=== PATIENT | female | born 1995 | race Caucasian/White ===

== ENCOUNTER → 2016-11-30 | Outpatient (CLI) | payer OTHER ==
[2016-11-30 12:18] LABS: Amorphous Sediment,Urine Occasional /hpf; Appearance,Urine Cloudy (Clear); Bilirubin,Urine Negative (Negative); CH 30.4; CHCM 33.9; Glucose,Urine (UA) Negative (Negative); HDW 2.71; HGB 13.4 gm/dL (11.4-16.0); Ketones,Urine Negative (Negative); Leukocyte Esterase,Urine Large (Negative); MCH 30.3 pg (25.0-35.0); MCHC 33.5 g/dL (31.0-37.0); MCV 90.3 fL (80.0-100.0); Mean Platelet Volume 7.7; Mucus,Urine Rare /hpf; Nitrite,Urine Negative (Negative); PH, Urine 7.5 (5.0-8.0); Particle Count 15534; Protein,Urine Trace (Negative); RBC 4.43 m/uL (3.80-5.40); Specific Gravity,Urine 1.012 (1.001-1.035); Squamous Epithelial Cell,Urine 21 /hpf (0-4); UA Billing (MACRO vs. MICRO) MICRO; Urobilinogen,Urine <2.0 mg/dL (<2.0); WBC 8.2 k/uL (4.0-11.0); WBC,Urine 19 /hpf (0-5)
[2016-11-30 12:33] LABS: Glucose 77 mg/dL (74-99); Non-African American GFR(MDRD) >60 (>60 ml/min/1.73 sqM)
[2016-11-30 13:03] LABS: Hepatitis B Surface Ag Index 0.06
[2016-11-30 15:51] LABS: Treponemal Ab Non-Reactive (Non-Reactive)
== END | disposition home or self-care (01) ==
LOC: LABWHC1 11:20
PROVIDERS: ATTEND Obstetrics & Gynecology
DX: Z34.02 Encounter for supervision of normal first pregnancy, second trimester (principal); R53.83 Other fatigue; Z3A.00 Weeks of gestation of pregnancy not specified
CPT/HCPCS: 36415; 81001; 82565; 82947; 85027; 86762; 86780; 86850; 86900; 86901; 87086; 87340; 87390; 87491; 87591

== ENCOUNTER → 2016-12-28 | Outpatient (CLI) | payer OTHER ==
[2016-12-28 17:40] LABS: CH 31.4; CHCM 33.3; HCT 35.8 % (34.0-46.0); HDW 2.71; HGB 11.8 gm/dL (11.4-16.0); MCH 31.2 pg (25.0-35.0); MCHC 32.9 g/dL (31.0-37.0); MCV 94.7 fL (80.0-100.0); RBC 3.78 m/uL (3.80-5.40); WBC 10.9 k/uL (4.0-11.0)
== END | disposition home or self-care (01) ==
LOC: LABWHC1 15:52
PROVIDERS: ATTEND Obstetrics & Gynecology
DX: Z34.02 Encounter for supervision of normal first pregnancy, second trimester (principal)
CPT/HCPCS: 36415; 82950; 85027; 86850

== ENCOUNTER 2017-04-01 17:53 | Outpatient (CLI) | payer OTHER ==
[2017-04-01 19:20] VITALS: BP 135/74; PULSE 75; RESP 18; TEMP 98.1
--- NOTE | 2017-04-01 22:51 | P.MSEPDOC ---
Presenting Problems - Arrival Data Date of Arrival on Unit: 04/01/17 Time of Arrival on Unit: 17:53 Mode of Transport: Wheelchair - Complaint OB-Reason for Admission/Chief Complaint: Possible Onset of Labor Comment: contractions q 5 min started at 3pm pt crying with contractions. Medical History - Information : 1 Para: 0 Term: 0 : 0 Abortions: Spontaneous or Elective: 0 Number of Living Children: 0 - Gestational Age Gestational Age by PIETRO (wks/days): 38 Weeks and 5 Days Review of Systems - Review of Systems Constitutional: No problems Breast: No problems ENT: No problems Cardiovascular: No problems Respiratory: No problems Gastrointestinal: No problems Genitourinary: No problems Musculoskeletal: No problems Neurological: No problems Skin: No problems Vital Signs - Temperature Temperature: 98.1 F Temperature Source: Oral - Pulse Right Pulse Rate: 75 Pulse Assessment Method: Automatic Cuff - Respirations Respiratory Rate: 18 Oxygen Delivery Method: Room Air - Blood Pressure Right Arm Blood Pressure: 135/74 Blood Pressure Mean: 94 Blood Pressure Source: Automatic Cuff Medical Screen Scoring (Pre) - Cervical Exam Dilation: 1-3 cm = 1 - Uterine Contractions Frequency: > or = 36 weeks =2 Duration: > 40 seconds = 2 - Maternal Vital Signs Maternal Blood Pressure: N/A Signs of Preeclampsia: N/A Maternal Respirations: N/A - Pain Assessment Pain Location and Character: Abdomen Pain Scale Used: Numeric (1 - 10) Pain Intensity: 7 Pain Description: Cramping - Assessment Baseline FHR: 130 Heart Rate - NICHD Category: Category I (Normal) = 0 NST: Reactive - Total Score Total Score (Pre): 5 - Level of Risk Level of Risk: Low (0-5) Physician Notification (Pre) - Physician Notified Physician Notified Date: 04/01/17 Physician Notified Time: 18:45 Physician/Practitioner Notifed:: Dr Rosa New Order Received: Yes (recheck cervix in 1 hour.) Medical Screen Scoring (Post) - Cervical Exam Dilation: 1-3 cm = 1 Effacement: More than 50% = 2 Membranes: Intact - Uterine Contractions Frequency: > or = 36 weeks =2 Duration: > 40 seconds = 2 - Maternal Vital Signs Maternal Temperature: N/A Maternal Blood Pressure: N/A Signs of Preeclampsia: N/A Maternal Respirations: N/A - Pain Assessment Pain Location and Character: Abdomen Pain Scale Used: Numeric (1 - 10) Pain Intensity: 6 Pain Management Goal: 5 Pain Description: *Acute, Cramping Pain Frequency: Intermittent Pain Behavior: Facial Grimacing Pain Aggravating Factors: Contractions FLACC Face: Occassnl Grimac/Frown = 1 FLACC Legs: Relaxed = 0 FLACC Activity: Lying Quietly = 0 FLACC Cry: No Cry = 0 FLACC Consolability: Reassured by Touch = 1 FLACC Pain Score: 2 - Maternal Trauma Maternal Trauma: N/A - Assessment Heart Rate: 125 Heart Rate - NICHD Category: Category I (Normal) = 0 NST: Reactive - Total Score Total Score (Post): 7 - Post Treatment Level of Risk Post Treatment Level of Risk: Medium (6-9) Physician Notification (Post) - Physician Notified Physician Notified Date: 04/01/17 Physician Notified Time: 19:30 Physician/Practitioner Notified:: Dr Rosa Spoke With: Dr Rosa New Order Received: Yes - Notification Comment Comment: pt may stay for an extra hour and be rechecked and if no change made to d/c pt home or pt can go home now and try comfort measures Disposition - Disposition OB Disposition: Discharge to home Discharge Date: 04/01/17 Discharge Time: 19:45 I agree with the RN Medical Screening Exam: Yes Risk & Benefit of care provided described in d/c instruction: Yes Diagnosis: FALSE LABOR AT OR AFTER 37 COMPLETED WEEKS OF GESTATION
== END 2017-04-01 19:45 | disposition home or self-care (01) ==
LOC: FBPOP 17:53
PROVIDERS: ATTEND Obstetrics & Gynecology
DX: O47.1 False labor at or after 37 completed weeks of gestation (principal); Z3A.38 38 weeks gestation of pregnancy
CPT/HCPCS: 59025; G0463; 99213

== ENCOUNTER 2017-04-02 01:36 | Inpatient (IN) | payer OTHER ==
[2017-04-02] MEDS ORDERED: METHYLERGONOVINE 0.2 MG/ML 1 ML AMP IM PRN (01:52)
[2017-04-02] MEDS ORDERED: OXYTOCIN 10 UNIT/ML 1 ML VIAL IM PRN (01:52)
[2017-04-02] MEDS ORDERED: TERBUTALINE 1 MG/ML VIAL SQ PRN (01:52)
[2017-04-02] MEDS ORDERED: CARBOPROST TROMETHAMINE 250 MCG/ML 1 ML AMP IM PRN (01:52)
[2017-04-02] MEDS ORDERED: LIDOCAINE 1% (PF) 10 MG/ML (30 ML SDV) SQ PRN (01:52)
[2017-04-02] MEDS ORDERED: LACTATED RINGERS 1,000 ML IV SCH (02:00)
[2017-04-02 02:10] LABS: Basophils % (A) 0 %; CH 29.6; CHCM 32.4; Eosinophils # (A) 0.2 k/uL (0-0.7); Eosinophils % (A) 1 %; HCT 35.3 % (34.0-46.0); HDW 3.16; Hypochromasia Slight; Luc # (Auto) 0.06; Luc % (Auto) 0; Lymphocytes # (A) 0.7 k/uL (1.0-4.8); Lymphocytes % (A) 4 %; MCH 28.6 pg (25.0-35.0); MCHC 31.2 g/dL (31.0-37.0); MCV 91.6 fL (80.0-100.0); Mean Platelet Volume 7.8; Monocytes # (A) 0.4 k/uL (0-1.0); Monocytes % (A) 3 %; Neutrophils # (A) 13.9 k/uL (1.3-7.7); Neutrophils % (A) 92 %; RBC 3.85 m/uL (3.80-5.40); RDW 12.6 % (11.5-15.5); WBC 15.1 k/uL (4.0-11.0); WBC (Perox) 14.82
--- NOTE | 2017-04-02 02:18 | P.HPOB ---
History of Present Illness H&P Date: 04/02/17 Chief Complaint: Contractions This is a 21-year-old female 1 para 0 with an estimated date of confinement of 04/10/2017, estimated gestational age of 38-6/7 weeks, who presents to labor and delivery with complaints of contractions that become stronger through the night. She was seen in triage earlier in the evening with contractions and found to be 1-1/2 cm. She was rechecked after 2 hours with no cervical change and was sent home. She returned after taking a warm bath and feeling much stronger and regular contractions. She states when she got up out of the bath she felt a gush of water but figured it was from being in the bathtub. Upon arrival at triage she is now noted to be 6-6-1/2 cm. When I checked her myself, I did not palpate a bag of water and hair is palpated. Her care has been with Dr. Olguin and has been uncomplicated per patient. She was treated for chlamydia earlier in the . Test of cure was negative. She did receive RhoGAM for Rh-. labs: Obstetrical ultrasound-normal anatomy GC-negative Chlamydia-initially positive and test of cure negative Random glucose-77 Hepatitis B surface antigen-negative The globe 1-13.4 HIV-nonreactive Syphilis antibody-negative nonreactive Rubella-low positive Blood type-O- Antibody screen-negative One hour Glucola-85 Group B streptococcus-negative Obstetrical history first Review of Systems Constitutional: Denies chills, Denies fever Eyes: denies blurred vision, denies pain Ears, nose, mouth and throat: Denies headache, Denies sore throat Cardiovascular: Denies chest pain, Denies shortness of breath Respiratory: Denies cough Gastrointestinal: Reports abdominal pain (Contractions) Genitourinary: Reports pelvic pain, Reports Musculoskeletal: Reports low back pain, Denies myalgias Integumentary: Denies pruritus, Denies rash Neurological: Denies numbness, Denies weakness Psychiatric: Denies anxiety, Denies depression Past Medical History Past Medical History: No Reported History History of Any Multi-Drug Resistant Organisms: None Reported Past Surgical History: No Surgical Hx Reported Past Psychological History: No Psychological Hx Reported Smoking Status: Never smoker Past Alcohol Use History: None Reported Past Drug Use History: None Reported - Past Family History Mother Family Medical History: Diabetes Mellitus Medications and Allergies Home Medications Medication Instructions Recorded Confirmed Type Pnv,Calcium 72/Iron/Folic Acid 1 tab PO DAILY 04/02/17 04/02/17 History [ Plus Tablet] Allergies Allergy/AdvReac Type Severity Reaction Status Date / Time No Known Allergies Allergy Verified 04/02/17 01:48 Exam Osteopathic Statement: *. No significant issues noted on an osteopathic structural exam other than those noted in the History and Physical/Consult. - Vital Signs Vital signs: Intake and Output 04/01/17 04/01/17 04/02/17 14:59 22:59 06:59 Other: Weight 70.76 kg Patient Weight 04/02/17 06:59 Weight 70.76 kg HEENT: Within normal limits Heart: Regular rate and rhythm Lungs: Clear to auscultation bilaterally Abdomen: Cervix: 6-1/2 cm/100%/-2 station. No palpable bag of water is noted. heart tones: Reactive Contractions: Every 1-2 minutes Extremities: Negative Homans Assessment and Plan (1) 38 weeks gestation of Current Visit: Yes Status: Acute Code(s): Z3A.38 - 38 WEEKS GESTATION OF SNOMED Code(s): 32991048 Plan: Admission for active labor. Epidural anesthesia. Expectant management.
--- NOTE | 2017-04-02 03:08 | P.PROBDLV ---
Vaginal Delivery Note - . Vaginal Delivery Note: The patient progressed fairly rapidly to complete dilation. She was not able to get an epidural due to rapid labor. Once reaching complete dilation, she began involuntarily pushing. 's head rather rapidly came to a crown. Perineum was anesthetized with 1% lidocaine and a midline episiotomy was cut. With one further push, the 's head delivered across the perineum in a left occiput anterior position. As soon as the head delivered a big gush of blood occurred. Nose and mouth were bulb suctioned at the perineum. Nuchal cord times one was doubly cut and clamped and then reduced around the infant's head. With one further push, the remainder the delivered and was placed on mother's abdomen. was then immediately taken to warmer for evaluation by nursing staff. A viable female infant was noted with scores of 6 at 1 minute and 8 at 5 minutes and weight of 6 lbs. 6 oz. Her placenta delivered shortly thereafter, intact, with a three-vessel cord. The placenta did have a very marginal cord insertion. No obvious area of abruption was noted. Uterus did contract fairly well after uterine massage and oxytocin. Inspection of the perineum revealed a midline episiotomy with no further extension. This area was anesthetized with 1% lidocaine and then sutured with 3-0 and 2-0 Vicryl suture in the usual multilayer fashion. Estimated blood loss is approximately 150 mL. Mother is in stable condition and infant is taken to nursery for evaluation.
[2017-04-02] MEDS ORDERED: BENZOCAINE/MENTHOL SPRAY 1 GM/SPRAY AEROSOL TOPICAL PRN (03:23)
[2017-04-02] MEDS ORDERED: OXYTOCIN 20 UNITS/1000 ML NS 1,000 ML IV SCH (03:23)
[2017-04-02] MEDS ORDERED: diphenhydrAMINE 50 MG CAP PO PRN (03:23)
[2017-04-02] MEDS ORDERED: HYDROCORTISONE 2.5% RECTAL CREAM 30 GM TUBE RECTAL PRN (03:23)
[2017-04-02] MEDS ORDERED: MEASLES-MUMPS-RUBELLA VACC/PF 12,500 UNIT/0.5 ML VIAL SQ ONE (03:23)
[2017-04-02] MEDS ORDERED: ZOLPIDEM 5 MG TAB PO PRN (03:23)
[2017-04-02] MEDS ORDERED: WITCH HAZEL 1 EACH MED..PAD TOPICAL PRN (03:23)
[2017-04-02] MEDS ORDERED: LANOLIN CREAM 5 GM TUBE TOPICAL PRN (03:23)
[2017-04-02] MEDS ORDERED: diphenhydrAMINE 25 MG CAP PO PRN (03:23)
[2017-04-02] MEDS ORDERED: SIMETHICONE 80 MG CHEWABLE PO PRN (03:23)
[2017-04-02] MEDS ORDERED: diphenhydrAMINE 50 MG/ML 1 ML VIAL IVP PRN ×2 (03:23)
[2017-04-02] MEDS: IBUPROFEN 600 MG TAB PO PRN ×3 (04:27→15:01)
[2017-04-02 04:47] VITALS: BMI 28.5
[2017-04-02] MEDS: SENNOSIDES-DOCUSATE SODIUM 1 EACH TAB PO SCH ×2 (09:00→19:50)
[2017-04-02] MEDS: ACETAMINOPHEN TAB 325 MG TAB PO PRN ×2 (13:04→19:53)
[2017-04-03] MEDS: IBUPROFEN 600 MG TAB PO PRN ×2 (05:56→16:04)
[2017-04-03 07:39] LABS: Basophils % (A) 0 %; CH 28.6; CHCM 31.3; Eosinophils % (A) 0 %; HCT 33.6 % (34.0-46.0); HDW 2.96; HGB 10.7 gm/dL (11.4-16.0); Hypochromasia Moderate; Luc # (Auto) 0.11; Luc % (Auto) 1; Lymphocytes # (A) 1.5 k/uL (1.0-4.8); Lymphocytes % (A) 14 %; MCH 29.2 pg (25.0-35.0); MCHC 31.8 g/dL (31.0-37.0); Mean Platelet Volume 8.8; Monocytes # (A) 0.5 k/uL (0-1.0); Monocytes % (A) 4 %; Neutrophils # (A) 9.2 k/uL (1.3-7.7); Neutrophils % (A) 81 %; RBC 3.66 m/uL (3.80-5.40); RDW 14.1 % (11.5-15.5); WBC 11.4 k/uL (4.0-11.0); WBC (Perox) 11.72
--- NOTE | 2017-04-03 08:50 | P.PNOBGVD ---
Subjective - Subjective Principal diagnosis: Post day 1 Interval history: Doing very well. Voices no complaints. Vital signs are stable and afebrile. Patient reports: Reports appetite normal, Reports voiding normally, Reports pain well controlled, Reports ambulating normally : in NICU Objective - Latest Vital Signs Latest vital signs: Vital Signs Temp Pulse Resp BP Pulse Ox 04/03/17 07:43 98 F 98 16 121/82 04/03/17 00:00 98.0 F 99 16 109/55 99 04/02/17 16:00 98.2 F 73 16 114/56 04/02/17 09:30 98.3 F 68 16 112/63 Intake and Output 04/02/17 04/03/17 04/03/17 22:59 06:59 14:59 Other: # Voids 1 1 2 - Exam Lungs: bilateral: normal Chest: Normal S1, Normal S2 Extremities: Present: normal Abdomen: Present: normal appearance, soft Uterus: Present: normal, firm - Labs Labs: Abnormal Lab Results - Last 24 Hours (Table) 04/03/17 Range/Units 07:27 WBC 11.4 H (4.0-11.0) k/uL RBC 3.66 L (3.80-5.40) m/uL Hgb 10.7 L (11.4-16.0) gm/dL Hct 33.6 L (34.0-46.0) % Neutrophils # 9.2 H (1.3-7.7) k/uL
[2017-04-03] MEDS: SENNOSIDES-DOCUSATE SODIUM 1 EACH TAB PO SCH ×2 (16:05→19:47)
[2017-04-04] MEDS: SENNOSIDES-DOCUSATE SODIUM 1 EACH TAB PO SCH (08:01)
[2017-04-04] MEDS: IBUPROFEN 600 MG TAB PO PRN (08:01)
[2017-04-04 08:08] VITALS: BP 124/78; PULSE 80; RESP 16; TEMP 98.3
--- NOTE | 2017-04-04 08:27 | P.DS ---
Providers Date of admission: 04/02/17 01:50 Expected date of discharge: 04/04/17 Attending physician: Phong Olguin Primary care physician: Stated None Hospital Course: Queta is doing very well day 2. She is ambulating, voiding, and she is tolerating her diet. She voices no complaints. Baby is still in special care nursery but she needs to be discharged home today. Prescription for Motrin has been provided. All other questions are answered for her at this time. Vital signs are stable and she is afebrile. Heart regular, lungs clear, extremities without pain. Abdomen is soft uterus is firm lochia is reported to be light. Assessment day 2. Plan discharged home follow up with me in 6 weeks. Patient Condition at Discharge: Good Plan - Discharge Summary New Discharge Prescriptions: New Ibuprofen [Motrin] 600 mg PO Q6HR PRN #30 tab PRN Reason: Pain No Action Pnv,Calcium 72/Iron/Folic Acid [ Plus Tablet] 1 tab PO DAILY Discharge Medication List Pnv,Calcium 72/Iron/Folic Acid [ Plus Tablet] 1 tab PO DAILY 04/02/17 [ History] Ibuprofen [Motrin] 600 mg PO Q6HR PRN #30 tab 04/04/17 [Rx] Follow up Appointment(s)/Referral(s): Phong Olguin DO [Doctor of Osteopathic Medicine] - 6 Weeks Activity/Diet/Wound Care/Special Instructions: No heavy lifting, limit stairs and driving, and pelvic rest. If any high temperatures, heavy bleeding, or severe pain call my office Discharge Disposition: HOME SELF-CARE
== END 2017-04-04 14:27 | disposition home or self-care (01) | DRG 560 ==
LOC: FBPOP 01:36 → 4FBP 01:50
PROVIDERS: ADMIT Obstetrics & Gynecology; ATTEND Obstetrics & Gynecology
PROC: 10E0XZZ Delivery of Products of Conception, External Approach (ICD-10-PCS; principal; 2017-04-02)
PROC: 0W8NXZZ Division of Female Perineum, External Approach (ICD-10-PCS; 2017-04-02)
DX: O69.81X0 Labor and delivery complicated by cord around neck, without compression, not applicable or unspecified (principal); O43.193 Other malformation of placenta, third trimester; Z83.3 Family history of diabetes mellitus; Z37.0 Single live birth; Z3A.38 38 weeks gestation of pregnancy
CPT/HCPCS: 59025; 85025; 88307; 90471; 90707; 99213

== ENCOUNTER → 2018-09-10 | Outpatient (CLI) | payer OTHER ==
--- NOTE | 2018-09-10 16:42 | US ---
EXAMINATION TYPE: Transabdominal DATE OF EXAM: 09/10/2018 4:24 PM COMPARISON: NONE CLINICAL HISTORY: Z36 confirm dates. Absent heart tones EXAM PERFORMED: Transvaginal (TV) and Transabdominal (TA) EXAM MEASUREMENTS: GESTATIONAL AGE / DATING Physician Established: Not yet established Dates by LMP: (12 weeks/2 days) EDC: 03/23/19 Dates by First Scan: No previous this is first scan Dates by Current Scan for: (10 weeks/0 days) EDC: 04/08/19 MATERNAL ANATOMY Uterus: 10.1 x 6.4 x 8.2cm Right Ovary: 3.0 x 1.6 x 1.7cm Left Ovary: 2.9 x 2.0 x 2.1cm Post CDS / Adnexa: appears wnl Presence of free fluid: no Presence of corpus luteal cyst: Yes, hypoechoic focus left ovary = 2.2 x 1.4 x 1.5 cm. GESTATION / SURVEY CRL: 3.2cm (10 weeks/0 days) Yolk Sac (normal less than 6mm): 0.4cm Heart Rate: 175 bpm Rhythm: Normal IUP: Viable IUP Date of LMP: 06/16/18 Beta HcG (if available): Not available at this time IMPRESSION: SINGLE VIABLE IUP 10WKS/0DAYS WITH PIETRO 04/08/19.
== END | disposition home or self-care (01) ==
LOC: RADUSWWP 15:54
PROVIDERS: ATTEND Obstetrics & Gynecology
DX: O36.8310 Maternal care for abnormalities of the fetal heart rate or rhythm, first trimester, not applicable or unspecified (principal); Z3A.10 10 weeks gestation of pregnancy
CPT/HCPCS: 76801; 76817

== ENCOUNTER 2019-02-06 13:08 | Outpatient (CLI) | payer OTHER ==
[2019-02-06 13:46] VITALS: BP 118/65; PULSE 93; RESP 16; TEMP 96.6
[2019-02-06 14:21] LABS: Appearance,Urine Clear (Clear); Bilirubin,Urine 2+ (Negative); Blood,Urine Moderate (Negative); Color,Urine Dark Orange; Glucose,Urine (UA) Negative (Negative); Ketones,Urine Negative (Negative); Leukocyte Esterase,Urine Negative (Negative); Mucus,Urine Rare /hpf; Nitrite,Urine Positive (Negative); Protein,Urine Trace (Negative); RBC,Urine 134 /hpf (0-5); Specific Gravity,Urine 1.016 (1.001-1.035); Squamous Epithelial Cell,Urine 4 /hpf (0-4)
--- NOTE | 2019-02-20 10:37 | P.MSEPDOC ---
Presenting Problems - Arrival Data Date of Arrival on Unit: 02/06/19 Time of Arrival on Unit: 13:08 Mode of Transport: Ambulatory - Complaint OB-Reason for Admission/Chief Complaint: Signs/Symptoms UTI Comment: right flank pain and difficulty urinating Medical History - Information : 2 Para: 1 Term: 1 : 0 Abortions: Spontaneous or Elective: 0 Number of Living Children: 1 - Gestational Age Gestational Age by PIETRO (wks/days): 31 Weeks and 2 Days Review of Systems - Review of Systems Constitutional: No problems Breast: No problems ENT: No problems Cardiovascular: No problems Respiratory: No problems Gastrointestinal: No problems Genitourinary: Dysuria, Increased frequency Musculoskeletal: No problems Neurological: No problems Skin: No problems Vital Signs - Temperature Temperature: 96.6 F Temperature Source: Temporal Artery Scan - Pulse Right Brachial Pulse Rate: 93 Pulse Assessment Method: Automatic Cuff - Respirations Respiratory Rate: 16 Oxygen Delivery Method: Room Air O2 Sat by Pulse Oximetry: 97 - Blood Pressure Right Arm Sitting Blood Pressure: 118/65 Blood Pressure Mean: 82 Blood Pressure Source: Automatic Cuff Medical Screen Scoring (Pre) - Cervical Exam Dilation: Exam Deferred - Uterine Contractions Frequency: N/A Duration: N/A Intensity: N/A - Maternal Vital Signs Maternal Temperature: N/A Maternal Blood Pressure: N/A Signs of Preeclampsia: N/A Maternal Respirations: N/A - Maternal Trauma Maternal Trauma: N/A - Assessment - Baby A Baseline FHR: 135 Heart Rate - NICHD Category: Category I (Normal) = 0 NST: Reactive Position: N/A Station: N/A - Total Score - Baby A Total Score - Baby A: 0 - Total Score - Baby B Total Score - Baby B: 0 - Total Score - Baby C Total Score - Baby C: 0 - Level of Risk - Baby A Level of Risk - Baby A: Low (0-5) - Level of Risk - Baby B Level of Risk - Baby B: Low (0-5) - Level of Risk - Baby C Level of Risk - Baby C: Low (0-5) Medical Screen Scoring (Post) - Assessment - Baby A Heart Rate: 135 Heart Rate - NICHD Category: Category I (Normal) = 0 NST: Reactive Position: N/A Station: N/A - Total Score Total Score - Baby A: 0 - Post Treatment Level of Risk Post Treatment Level of Risk - Baby A: Low (0-5) Physician Notification (Post) - Physician Notified Physician Notified Date: 02/06/19 Physician Notified Time: 14:47 Spoke With: Sharif Rose Order Received: Yes (discharge with instruction and script) - Notification Comment Comment: UA sent for culture, script for Keflex sent to outpt pharm. Pt instructed to pick it up and if symptoms do not improve over next day or two then call office for appt. Next sched appt 02/17 Disposition - Disposition OB Disposition: Discharge to home, Written follow up instructions reviewed Discharge Date: 02/06/19 Discharge Time: 15:00 I agree with the RN Medical Screening Exam: Yes Risk & Benefit of care provided described in d/c instruction: Yes Diagnosis: URINARY TRACT INFECTION FOL (INDUCED) TERM OF
== END 2019-02-06 15:00 | disposition home or self-care (01) ==
LOC: FBPOP 13:08
PROVIDERS: ATTEND Obstetrics & Gynecology
DX: O23.43 Unspecified infection of urinary tract in pregnancy, third trimester (principal); Z3A.31 31 weeks gestation of pregnancy
CPT/HCPCS: 59025; 81001; G0463; 99213

== ENCOUNTER 2019-03-06 21:08 | Outpatient (CLI) | payer OTHER ==
[2019-03-06 22:33] VITALS: BP 129/80; PULSE 92; RESP 16; TEMP 98.6
--- NOTE | 2019-03-13 08:37 | P.MSEPDOC ---
Presenting Problems - Arrival Data Date of Arrival on Unit: 03/06/19 Time of Arrival on Unit: 21:08 Mode of Transport: Ambulatory - Complaint OB-Reason for Admission/Chief Complaint: Vaginal Bleeding Comment: pt states reason for visit is cramping on rt side and some bleeding noted on. toilet paper when she wiped at work 2 hours ago. states couldnt get the bleeding to stop. but did not wear a pad here and underware are clean Medical History - Information : 2 Para: 1 Term: 1 : 0 Abortions: Spontaneous or Elective: 0 Number of Living Children: 1 - Gestational Age Gestational Age by PIETRO (wks/days): 35 Weeks and 1 Days - History Comment: last delivery vaginal 37 weeks no problems Review of Systems - Review of Systems Constitutional: No problems Breast: No problems ENT: No problems Cardiovascular: No problems Respiratory: No problems Gastrointestinal: No problems Genitourinary: No problems Musculoskeletal: No problems Neurological: No problems Skin: No problems Vital Signs - Temperature Temperature: 98.6 F Temperature Source: Oral - Pulse Right Pulse Rate: 92 Pulse Assessment Method: Automatic Cuff - Respirations Respiratory Rate: 16 Oxygen Delivery Method: Room Air O2 Sat by Pulse Oximetry: 98 - Blood Pressure Right Arm Blood Pressure: 129/80 Blood Pressure Mean: 96 Blood Pressure Source: Automatic Cuff Medical Screen Scoring (Pre) - Cervical Exam Dilation: 1-3 cm = 1 Membranes: Intact - Uterine Contractions Frequency: N/A Duration: N/A Intensity: N/A - Maternal Vital Signs Maternal Temperature: N/A Maternal Blood Pressure: N/A Signs of Preeclampsia: N/A Maternal Respirations: N/A - Maternal Trauma Maternal Trauma: N/A - Assessment - Baby A Baseline FHR: 130 Heart Rate - NICHD Category: Category I (Normal) = 0 NST: Reactive Position: N/A Station: N/A - Total Score - Baby A Total Score - Baby A: 1 - Total Score - Baby B Total Score - Baby B: 1 - Total Score - Baby C Total Score - Baby C: 1 - Level of Risk - Baby A Level of Risk - Baby A: Low (0-5) - Level of Risk - Baby B Level of Risk - Baby B: Low (0-5) - Level of Risk - Baby C Level of Risk - Baby C: Low (0-5) Physician Notification (Pre) - Physician Notified Physician Notified Date: 03/06/19 Physician Notified Time: 21:50 Physician/Practitioner Notifed:: Dr Rosa Spoke With: Dr Rosa New Order Received: Yes - Notification Comment Comment: Dr Rosa advised pt here for cramping rt side and bleeding noted when wiping. NST reactive, maternal vitals WNL. Speculum exam showed no bleeding only yellow creamy discharge. vag exam 1cm 50% High. no contractions noted on monitor. pt denied constipation and possibilty of hemorrhoids. also denies urinary symptoms. Order for discharge recieved and to advise pt she may have spotting after this vag exam. Pt to. return if worsens Disposition - Disposition OB Disposition: Discharge to home Discharge Date: 03/06/19 Discharge Time: 22:00 I agree with the RN Medical Screening Exam: Yes Risk & Benefit of care provided described in d/c instruction: Yes Diagnosis: SPOTTING COMPLICATING , THIRD TRIMESTER
== END 2019-03-06 22:00 | disposition home or self-care (01) ==
LOC: FBPOP 21:08
PROVIDERS: ATTEND Obstetrics & Gynecology
DX: O26.853 Spotting complicating pregnancy, third trimester (principal); Z3A.35 35 weeks gestation of pregnancy
CPT/HCPCS: 59025; G0463; 99213

== ENCOUNTER 2019-04-02 06:00 | Inpatient (IN) | payer OTHER ==
[2019-04-02] MEDS ORDERED: METHYLERGONOVINE 0.2 MG/ML 1 ML AMP IM PRN (06:17)
[2019-04-02] MEDS ORDERED: OXYTOCIN 10 UNIT/ML 1 ML VIAL IM PRN (06:17)
[2019-04-02] MEDS ORDERED: TERBUTALINE 1 MG/ML VIAL SQ PRN (06:17)
[2019-04-02] MEDS ORDERED: CARBOPROST TROMETHAMINE 250 MCG/ML 1 ML AMP IM PRN (06:17)
[2019-04-02] MEDS ORDERED: LIDOCAINE 0.5% (PF) 5 MG/ML (50 ML SDV) SQ PRN (06:17)
[2019-04-02 06:27] VITALS: BMI 29.9
[2019-04-02] MEDS ORDERED: LACTATED RINGERS 1,000 ML IV SCH ×2 (06:30)
[2019-04-02] MEDS ORDERED: OXYTOCIN 30 UNITS/500 ML NS 30 UNIT in SALINE 1 500ML.BAG IV SCH (06:30)
[2019-04-02 06:38] LABS: Basophils % (A) 0 %; Eosinophils # (A) 0.1 k/uL (0-0.7); Eosinophils % (A) 1 %; HCT 35.5 % (34.0-46.0); HGB 12.1 gm/dL (11.4-16.0); Lymphocytes # (A) 1.8 k/uL (1.0-4.8); Lymphocytes % (A) 19 %; MCH 29.7 pg (25.0-35.0); MCV 87.3 fL (80.0-100.0); Mean Platelet Volume 6.4; Monocytes # (A) 0.4 k/uL (0-1.0); Monocytes % (A) 4 %; Neutrophils # (A) 7.3 k/uL (1.3-7.7); Neutrophils % (A) 74 %; Platelet Count 283 k/uL (150-450); RBC 4.06 m/uL (3.80-5.40); RDW 13.3 % (11.5-15.5); WBC 9.8 k/uL (3.8-10.6)
[2019-04-02] MEDS ORDERED: BUTORPHANOL 1 MG/ML 1 ML VIAL IV PRN (07:49)
[2019-04-02] MEDS ORDERED: diphenhydrAMINE 50 MG CAP PO PRN (12:45)
[2019-04-02] MEDS ORDERED: ZOLPIDEM 5 MG TAB PO PRN (12:45)
[2019-04-02] MEDS ORDERED: BENZOCAINE/MENTHOL SPRAY 1 GM/SPRAY AEROSOL TOPICAL PRN (12:45)
[2019-04-02] MEDS ORDERED: LANOLIN CREAM 5 GM TUBE TOPICAL PRN (12:45)
[2019-04-02] MEDS ORDERED: HYDROCORTISONE 2.5% RECTAL CREAM 30 GM TUBE RECTAL PRN (12:45)
[2019-04-02] MEDS ORDERED: ACETAMINOPHEN TAB 325 MG TAB PO PRN (12:45)
[2019-04-02] MEDS ORDERED: OXYTOCIN 20 UNITS/1000 ML NS 1,000 ML IV SCH (12:45)
[2019-04-02] MEDS ORDERED: WITCH HAZEL 1 EACH MED..PAD TOPICAL PRN (12:45)
[2019-04-02] MEDS ORDERED: SIMETHICONE 80 MG CHEWABLE PO PRN (12:45)
[2019-04-02] MEDS ORDERED: diphenhydrAMINE 25 MG CAP PO PRN (12:45)
[2019-04-02] MEDS: IBUPROFEN 600 MG TAB PO PRN ×2 (13:15→20:02)
--- NOTE | 2019-04-02 13:27 | P.HPOB ---
History of Present Illness H&P Date: 04/02/19 Chief Complaint: Intrauterine at term: Induction of labor Queta is a 23-year-old at 39 weeks gestation arise for induction of labor. Her course has been unremarkable and she is feeling well at this time. Review of induction was thoroughly performed and all questions were answered her pertinent labs could O- blood type Rh generally was negative, rubella nonimmune, hepatitis B surface antigen and RPR were both negative as was removed strep. On physical exam vital signs are stable and afebrile. Heart regular, lungs clear, extremities without pain. Abdomen soft gravid uterus is noted. She is dilated to 2-3 cm artificial rupture membranes was performed and clear fluid is noted. A category 1 tracing is noted. Assessment intrauterine at term. Plan augmentation of labor with Pitocin and expect spontaneous vaginal delivery. Past Medical History Past Medical History: No Reported History History of Any Multi-Drug Resistant Organisms: None Reported Past Surgical History: No Surgical Hx Reported Past Anesthesia/Blood Transfusion Reactions: No Reported Reaction Past Psychological History: No Psychological Hx Reported Smoking Status: Former smoker Past Alcohol Use History: None Reported Past Drug Use History: None Reported - Past Family History Mother Family Medical History: Diabetes Mellitus, Hypertension Medications and Allergies Home Medications Medication Instructions Recorded Confirmed Type Pnv,Calcium 72/Iron/Folic Acid 1 tab PO DAILY 04/02/17 04/02/19 History [ Plus Tablet] Allergies Allergy/AdvReac Type Severity Reaction Status Date / Time No Known Allergies Allergy Verified 04/02/19 06:17 Exam Osteopathic Statement: *. No significant issues noted on an osteopathic structural exam other than those noted in the History and Physical/Consult. Vital Signs Temp Pulse Resp BP Pulse Ox 04/02/19 12:45 97.6 F 98 18 120/62 04/02/19 06:16 96.1 F L 111 H 16 121/80 97 Intake and Output 04/01/19 04/02/19 04/02/19 22:59 06:59 14:59 Other: Weight 64.41 kg - OBG Physical Exam Breast: both: normal (no masses) Abdomen: bowel sounds normal, no diffuse tenderness, no bruit present, no guarding noted, no hepatomegaly, no splenomegaly, no mass Vulva: both: normal Vagina: normal moisture, no discharge Cervix: no lesion, no discharge Uterus: normal size, normal contour Adnexa: both: normal Anus/Rectum: normal perianal skin, no rectal mass, no hemorrhoids, heme negative Results Result Diagrams: 04/02/19 06:25
--- NOTE | 2019-04-02 13:28 | P.PROBDLV ---
Vaginal Delivery Note - . Vaginal Delivery Note: Crystal progressed complete and pushing with spontaneous vaginal delivery of a viable male over a first repair the laceration. Following delivery of the head anterior posterior shoulders were easily delivered with the baby in left occiput anterior position. Once baby was fully delivered mouth nares were bulb suctioned and baby was placed on mother's abdomen where the umbilical cord was allowed to pulsate for 30 seconds prior to clamping and cutting. Once this was accomplished nursery personnel was present and assumed care. Placenta was then delivered intact and Pitocin was added to the IV. scores and weight are on the chart at this time but both mother and baby are stable following delivery. 3-0 Vicryl was used to repair the laceration.
[2019-04-02] MEDS ORDERED: INFLUENZA VACCINE (6 MOS+) 60 MCG/0.5 ML SYRINGE IM ONE (20:04)
[2019-04-02] MEDS ORDERED: DIPH,PERTUS(ACELL)TETVAC-LF 0.5 ML VIAL IM ONE (20:04)
[2019-04-02] MEDS ORDERED: Rhogam IMMUNE GLOBULIN 1,500 UNIT/1 ML IM ONE (20:38)
[2019-04-02] MEDS: SENNOSIDES-DOCUSATE SODIUM 1 EACH TAB PO SCH (21:58)
[2019-04-03] MEDS: IBUPROFEN 600 MG TAB PO PRN (02:59)
[2019-04-03 07:00] LABS: Basophils % (A) 0 %; Eosinophils # (A) 0.1 k/uL (0-0.7); Eosinophils % (A) 0 %; HCT 35.5 % (34.0-46.0); HGB 11.5 gm/dL (11.4-16.0); Hypochromasia Slight; Lymphocytes # (A) 2.2 k/uL (1.0-4.8); Lymphocytes % (A) 18 %; MCH 29.1 pg (25.0-35.0); MCHC 32.3 g/dL (31.0-37.0); MCV 90.1 fL (80.0-100.0); Mean Platelet Volume 6.8; Monocytes # (A) 0.6 k/uL (0-1.0); Monocytes % (A) 5 %; Neutrophils # (A) 9.2 k/uL (1.3-7.7); Neutrophils % (A) 75 %; Platelet Count 254 k/uL (150-450); RBC 3.94 m/uL (3.80-5.40); RDW 13.4 % (11.5-15.5); WBC 12.3 k/uL (3.8-10.6)
[2019-04-03 08:21] VITALS: BP 108/73; PULSE 80; RESP 16; TEMP 98.8
[2019-04-03] MEDS: SENNOSIDES-DOCUSATE SODIUM 1 EACH TAB PO SCH (08:21)
== END 2019-04-03 15:00 | disposition home or self-care (01) | DRG 807 ==
LOC: 4FBP 06:13
PROVIDERS: ADMIT Obstetrics & Gynecology; ATTEND Obstetrics & Gynecology
PROC: 10E0XZZ Delivery of Products of Conception, External Approach (ICD-10-PCS; principal; 2019-04-02)
PROC: 0HQ9XZZ Repair Perineum Skin, External Approach (ICD-10-PCS; principal; 2019-04-02)
DX: O70.0 First degree perineal laceration during delivery (principal); Z37.0 Single live birth; Z3A.39 39 weeks gestation of pregnancy; Z83.3 Family history of diabetes mellitus; Z82.49 Family history of ischemic heart disease and other diseases of the circulatory system; Z87.891 Personal history of nicotine dependence
CPT/HCPCS: 85025; 85461; 86850; 86870; 86880; 86900; 86901; 90686; 90715

== ENCOUNTER → 2020-03-08 | Outpatient (CLI) | payer OTHER | END | disposition home or self-care (01) | LOC: LABWHC1 08:53 | PROVIDERS: ATTEND Obstetrics & Gynecology | DX: N92.6 Irregular menstruation, unspecified (principal) | CPT/HCPCS: 36415; 84702 ==

== ENCOUNTER → 2020-07-01 | Outpatient (CLI) | payer OTHER ==
[~2020-07-01] MED LIST: cefTRIAXone 250 MG VIAL IM NR
[2020-07-01 10:41] VITALS: BP 123/83; PULSE 87; RESP 18; TEMP 98
== END | disposition home or self-care (01) ==
LOC: PROCWHC3 10:08
PROVIDERS: ATTEND Obstetrics & Gynecology
DX: A54.9 Gonococcal infection, unspecified (principal)
CPT/HCPCS: 96372; J0696

== ENCOUNTER 2020-10-30 18:47 | Emergency (ER) | payer OTHER ==
[2020-10-30 19:57] VITALS: BP 132/87; PULSE 100; RESP 22; TEMP 98.7
[2020-10-30 20:48] LABS: Appearance,Urine Clear (Clear); Bacteria,Urine Rare /hpf; Bilirubin,Urine Negative (Negative); Blood,Urine Small (Negative); Color,Urine Light Yellow; Glucose,Urine (UA) Negative (Negative); Ketones,Urine Negative (Negative); Leukocyte Esterase,Urine Trace (Negative); Mucus,Urine Rare /hpf; Nitrite,Urine Negative (Negative); Protein,Urine Negative (Negative); RBC,Urine 2 /hpf (0-5); Squamous Epithelial Cell,Urine 1 /hpf (0-4); Urobilinogen,Urine <2.0 mg/dL (<2.0); WBC,Urine 1 /hpf (0-5)
--- NOTE | 2020-10-30 21:01 | XR ---
EXAMINATION TYPE: XR chest 1V portable DATE OF EXAM: 10/30/2020 COMPARISON: 08/06/2014 HISTORY: Cough. Sore throat. TECHNIQUE: Single view FINDINGS: Heart and mediastinum are normal. Lungs are clear. Diaphragm is normal. There are no hilar masses. Bony thorax is intact. IMPRESSION: Normal chest. No change.
--- NOTE | 2020-10-30 21:10 | ED ---
URI HPI - General Chief Complaint: Upper Respiratory Infection Stated Complaint: sorethroat Source: patient Mode of arrival: ambulatory Limitations: no limitations - History of Present Illness Initial Comments: Queta is a 25-year-old female who presents the ER today for evaluation of sore throat, nasal congestion and change in smell. Patient's daughter has similar symptoms. Patient has not had a COVID-19 vaccine and has not had COVID-19 in the past. She is concern for COVID-19 infection at this time. Patient denies any cough or shortness of breath. - Related Data Allergies Allergy/AdvReac Type Severity Reaction Status Date / Time No Known Allergies Allergy Verified 07/01/20 10:25 Review of Systems ROS Statement: Those systems with pertinent positive or pertinent negative responses have been documented in the HPI. ROS Other: All systems not noted in ROS Statement are negative. Past Medical History Past Medical History: No Reported History History of Any Multi-Drug Resistant Organisms: None Reported Past Surgical History: No Surgical Hx Reported Past Anesthesia/Blood Transfusion Reactions: No Reported Reaction Past Psychological History: No Psychological Hx Reported Smoking Status: Former smoker, Vaper Past Alcohol Use History: None Reported Past Drug Use History: None Reported - Past Family History Mother Family Medical History: Diabetes Mellitus, Hypertension General Exam - General Exam Comments Initial Comments: Physical Exam GENERAL: Patient is well-developed and well-nourished. Patient is nontoxic and well- hydrated and is in no distress. HENT: Normocephalic, Atraumatic. Posterior oropharynx is clear, no erythema no exudates EYES: PERRL, EOMI PULMONARY: Unlabored respirations. No audible rales rhonchi or wheezing was noted. CARDIOVASCULAR: There is a regular rate and rhythm without any murmurs gallops or rubs. ABDOMEN: Soft and nontender with normal bowel sounds. SKIN: Skin is clear with no lesions or rashes and otherwise unremarkable. : Deferred NEUROLOGIC: Patient is alert and oriented x3. Moving all extremities spontaneously MUSCULOSKELETAL: Normal extremities with adequate strength and full range of motion. No lower extremity swelling or edema. No calf tenderness. PSYCHIATRIC: Normal psychiatric evaluation. Limitations: no limitations Course Vital Signs 10/30/20 19:55 Temperature 98.7 F Pulse Rate 100 Respiratory 22 Rate Blood Pressure 132/87 O2 Sat by Pulse 96 Oximetry Medical Decision Making - Medical Decision Making She was seen and evaluated history is obtained from patient History and physical exam are concerning for COVID-19 Patient also uncertain if she could be test was negative Chest x-ray is unremarkable COVID test is pending however based on clinical criteria the patient is presumed to have COVID was advised to quarantine - Lab Data Lab Results 10/30/20 10/30/20 Range/Units 20:07 20:07 Urine Color Light Yellow Urine Appearance Clear (Clear) Urine pH 6.0 (5.0-8.0) Ur Specific Maxwell 1.010 (1.001-1.035) Urine Protein Negative (Negative) Urine Glucose (UA) Negative (Negative) Urine Ketones Negative (Negative) Urine Blood Small H (Negative) Urine Nitrite Negative (Negative) Urine Bilirubin Negative (Negative) Urine Urobilinogen <2.0 (<2.0) mg/dL Ur Leukocyte Esterase Trace H (Negative) Urine RBC 2 (0-5) /hpf Urine WBC 1 (0-5) /hpf Ur Squamous Epith Cells 1 (0-4) /hpf Urine Bacteria Rare H (None) /hpf Urine Mucus Rare H (None) /hpf Urine HCG, Qual Not Detected (Not Detectd) Disposition Clinical Impression: COVID-19 determined by clinical diagnostic criteria Disposition: HOME SELF-CARE Condition: Stable Additional Instructions: Quarantine for 10 days Return for any worsening, chest pain, shortness of breath Take Vitamin C, Zinc and D3 (Or a supplement like Emergen-C immune support) If you have trouble sleeping, take melatonin Is patient prescribed a controlled substance at d/c from ED?: No Referrals: Andrews Jenkins MD [Primary Care Provider] - 1-2 days
== END 2020-10-30 21:26 | disposition home or self-care (01) ==
LOC: EC 18:47
DX: U07.1 COVID-19 (principal); Z87.891 Personal history of nicotine dependence
CPT/HCPCS: 71045; 81001; 81025; 87635; 99283

== ENCOUNTER → 2020-12-09 | Outpatient (CLI) | payer OTHER ==
--- NOTE | 2020-12-09 10:49 | XR ---
EXAMINATION TYPE: XR knee limited LT DATE OF EXAM: 12/09/2020 COMPARISON: None HISTORY: Pain TECHNIQUE: 2 view left knee FINDINGS: Joint space is preserved. No acute fracture or dislocation is evident. No joint effusion is evident. There are couple of small sclerotic areas with smooth margins could be bone islands within the distal lateral femur distal medial tibial plateau. IMPRESSION: 1. No acute osseous abnormality
--- NOTE | 2020-12-09 10:52 | XR ---
EXAMINATION TYPE: XR lumbar spine 2 or 3V DATE OF EXAM: 12/09/2020 COMPARISON: 02/29/2012 HISTORY: Pain TECHNIQUE: 3 view lumbar spine FINDINGS: There are 5 lumbar-type vertebral bodies. Pedicles are intact. Disc heights are preserved. Vertebral body heights are preserved. Alignment is normal. IMPRESSION: 1. Normal three-view lumbar spine
== END | disposition home or self-care (01) ==
LOC: RADXRMAIN 10:08
PROVIDERS: ATTEND Internal Medicine
DX: M54.5 Low back pain (principal); M25.562 Pain in left knee
CPT/HCPCS: 72100

== ENCOUNTER → 2021-09-23 | Outpatient (CLI) | payer OTHER ==
--- NOTE | 2021-09-23 13:12 | USB ---
Reason for exam: clinical finding. Indicated problem(s): pain in both breasts. Physical Findings: A clinical breast exam by your physician is recommended on an annual basis and results should be correlated with mammographic findings. US Breast BILAT Technologist: Katrin Morillo Right complete breast ultrasound includes all four quadrants, the retroareolar region and axilla. Finding demonstrates no cystic or solid lesion seen. Left complete breast ultrasound includes all four quadrants, the retroareolar region and axilla. Finding demonstrates a 0.5 x 0.5 x 0.3cm irregular lesion at 2 o'clock. Results were given to the patient verbally at the time of the exam. ASSESSMENT: Suspicious, BI-RAD 4 RECOMMENDATION: Ultrasound core biopsy of the left breast. Called Dr. Jacobson's office with mammographic findings and has scheduled an appointment for the patient for 10/20/21 at 2:[address] Nunes. Biopsy scheduled for 10/26/21 at 7:30. PRELIMINARY REPORT CALLED AND FAXED TO DR. NUNES ON 09/23/21.
== END | disposition home or self-care (01) ==
LOC: RADUSWWP 06:57
PROVIDERS: ATTEND Obstetrics & Gynecology
DX: N64.4 Mastodynia (principal); N63.0 Unspecified lump in unspecified breast

== ENCOUNTER → 2021-10-20 | Outpatient (CLI) | payer OTHER ==
--- NOTE | 2021-10-20 17:43 | P.GSHP ---
History of Present Illness H&P Date: 10/20/21 Chief Complaint: Abnormal left breast ultrasound Crystal is a 26-year-old white female who noted some fullness and swelling in her left breast approximately several weeks ago. She stated on the left side she had some initial green colored nipple discharge which has since stopped. She denies any right nipple discharge. She is not complaining of any lumps masses or nodules of concern in the right breast. She underwent a left breast ultrasound as well as a right breast ultrasound and [id number]. Nothing of concern was noted in the right breast. In the left breast 0.5 x 0.5 cm irregular lesion was noted at 2:00. Ultrasound core biopsy was recommended. Caffeine: Negative Nicotine: Negative Chocolate: Daily control pills: Dr. العلي that she gained 40 pounds and stopped approximately one year ago Family history: Maternal and paternal grandfathers lung cancer they were both smokers Paternal grandmother lung cancer smoker Hormonal history: Menarche: 12 , breast fed: Yes, age of first.: 21 . Regular Medical history: Anxiety and depression Carpal tunnel right hand Surgical history: Negative Social history: Nicotine: Stopped smoking 5 years ago Alcohol: Occasional Drugs: Negative - Constitutional Constitutional: Denies chills, Denies fever - EENT Eyes: denies blurred vision, denies pain Ears, nose, mouth and throat: Denies headache, Denies sore throat - Breasts Breasts: bilateral: as per HPI - Cardiovascular Cardiovascular: Denies chest pain, Denies shortness of breath - Respiratory Respiratory: Denies cough, Denies 7 - Gastrointestinal Gastrointestinal: Denies abdominal pain, Denies diarrhea, Denies nausea, Denies vomiting - Genitourinary (Female) Genitourinary: Denies dysuria, Denies hematuria - Menstruation Menstruation: Reports period normal - Musculoskeletal Comment: Carpal tunnel - Integumentary Comment: Multiple tattoos - Neurological Comment: Carpal tunnel - Psychiatric Psychiatric: Reports as per HPI - Endocrine Endocrine: Denies fatigue, Denies weight change - Hematologic/Lymphatic Hematologic/Lymphatic: Reports as per HPI - Allergic/Immunologic Allergic/Immunologic: Reports as per HPI Past Medical History Past Medical History: No Reported History History of Any Multi-Drug Resistant Organisms: None Reported Past Surgical History: No Surgical Hx Reported Past Anesthesia/Blood Transfusion Reactions: No Reported Reaction Past Psychological History: Anxiety, Depression Smoking Status: Former smoker, Vaper Past Alcohol Use History: None Reported Past Drug Use History: None Reported - Past Family History Mother Family Medical History: Diabetes Mellitus, Hypertension Medications and Allergies Home Medications Medication Instructions Recorded Confirmed Type Baclofen 5 mg PO DIRECTED PRN 10/17/21 10/17/21 History Sertraline [Zoloft] 25 mg PO DAILY 10/17/21 10/17/21 History Allergies Allergy/AdvReac Type Severity Reaction Status Date / Time No Known Allergies Allergy Verified 10/17/21 11:40 Surgical - Exam - General well developed, well nourished, no distress - Eyes normal ocular movement - ENT no hearing loss, no congestion - Neck trachea midline - Respiratory normal respiratory effort, clear to auscultation - Cardiovascular Heart Sounds: normal: S1, S2 - Abdomen Abdomen: soft, non tender, no guarding, no rigid, no rebound - Integumentary Multiple tattoos - Neurologic no disoriented, no combative - Musculoskeletal normal gait, normal posture - Psychiatric oriented to time, oriented to person, oriented to place, speech is normal, memory intact Breast examination: BRA: 38DD Inspection: Bilateral grade 2 ptosis Palpation: Right breast: Multi-positional exam no dominant masses or nodules of concern Right axilla: No adenopathy of concern Left breast: Multi-positional exam no dominant masses or nodules of concern Left axilla: No adenopathy of concern Results Ultrasound results reviewed Assessment and Plan Assessment: Impression: Abnormal left breast ultrasound Fibrocystic breast changes Plan: Ultrasound core biopsy left breast with follow-up after this Cc: Dr. Jacobson
== END | disposition home or self-care (01) ==
LOC: WWCWWP 16:54
PROVIDERS: ATTEND Surgery
DX: Z53.9 Procedure and treatment not carried out, unspecified reason (principal)

== ENCOUNTER → 2021-10-26 | Day surgery (SDC) | payer OTHER ==
--- NOTE | 2021-10-31 09:28 | USB ---
Prior Study Comparison: 09/23/2021 Bilateral Diagnostic Ultrasound, MERGED WITH [facility]. Pathology Description: Location: 2 o'clock. Marker Left Behind. Cores: 4 Skin Nicks: 1 Gauge: 18 ULTRASOUND GUIDED LEFT BREAST CORE BIOPSY: CLINICAL HISTORY: 2:00 left breast lesion FINDINGS: The procedure was explained to the patient. The risks, complications, benefits and alternatives were discussed and any questions were answered. Informed consent was obtained. Patient was placed supine on the ultrasound table and prepped and draped in the usual sterile fashion. Utilizing a 14 gauge needle, 4 passes were made into the requested left breast lesion. Surgical clip placed post procedure. Patient was stable throughout the procedure. Pathology is pending. All elements of maximal barrier technique were utilized. IMPRESSION: 1. Successful ultrasound guided core biopsy left breast lesion. Pathology pending. Pathology Results: Result: Benign, Pseudoangiomatous stromal hyperplasia. LEFT BREAST, TWO O'CLOCK, ULTRASOUND GUIDED NEEDLE CORE BIOPSY: Fibrocystic changes including fibrosis and adenosis. Focal pseudoangiomatous stromal hyperplasia (PASH). Overall Assessment: Benign Management: Diagnostic Mammogram of the left breast in 6 months. Electronically signed and approved by: Chris Amaro M.D. Radiologis
== END ==
LOC: RADUSWWP 07:43
PROVIDERS: ATTEND Surgery
DX: N60.12 Diffuse cystic mastopathy of left breast (principal); N64.89 Other specified disorders of breast
CPT/HCPCS: 88305; 19083; A4648

== ENCOUNTER → 2021-11-03 | Outpatient (CLI) | payer OTHER ==
[2021-11-03 15:11] VITALS: BP 118/76; PULSE 89; RESP 18; TEMP 98.3
--- NOTE | 2021-11-03 15:31 | P.PN ---
Subjective Progress Note Date: 11/03/21 Principal diagnosis: PASSakshi left breast Queta is a 26-year-old white female who noted some fullness and swelling in her left breast approximately several weeks ago. She stated on the left side she had some initial green colored nipple discharge which has since stopped. She denies any right nipple discharge. She is not complaining of any lumps masses or nodules of concern in the right breast. She underwent a left breast ultrasound as well as a right breast ultrasound and 420 [id number]. Nothing of concern was noted in the right breast. In the left breast 0.5 x 0.5 cm irregular lesion was noted at 2:00. Ultrasound core biopsy was recommended. This underwent ultrasound-guided core biopsy of the lesion in the left breast on 10-26-21. 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 She tolerated the biopsy without difficulty. The radiographs have been reviewed with Dr. Sebastian. The feeling is that the study can be repeated in 3 months. Caffeine: Negative Nicotine: Negative Chocolate: Daily control pills: Dr. العلي that she gained 40 pounds and stopped approximately one year ago Family history: Maternal and paternal grandfathers lung cancer they were both smokers Paternal grandmother lung cancer smoker Hormonal history: Menarche: 12 , breast fed: Yes, age of first.: 21 . Regular Medical history: Anxiety and depression Carpal tunnel right hand Surgical history: Negative Social history: Nicotine: Stopped smoking 5 years ago Alcohol: Occasional Drugs: Negative - Constitutional Constitutional: Denies chills, Denies fever - EENT Eyes: denies blurred vision, denies pain Ears, nose, mouth and throat: Denies headache, Denies sore throat - Breasts Breasts: bilateral: as per HPI - Cardiovascular Cardiovascular: Denies chest pain, Denies shortness of breath - Respiratory Respiratory: Denies cough, Denies 7 - Gastrointestinal Gastrointestinal: Denies abdominal pain, Denies diarrhea, Denies nausea, Denies vomiting - Genitourinary (Female) Genitourinary: Denies dysuria, Denies hematuria - Menstruation Menstruation: Reports period normal - Musculoskeletal Comment: Carpal tunnel - Integumentary Comment: Multiple tattoos - Neurological Comment: Carpal tunnel - Psychiatric Psychiatric: Reports as per HPI - Endocrine Endocrine: Denies fatigue, Denies weight change - Hematologic/Lymphatic Hematologic/Lymphatic: Reports as per HPI Objective - Vital Signs Vital signs: Vital Signs Temp 98.3 F 11/03/21 15:08 Pulse 89 11/03/21 15:08 Resp 18 11/03/21 15:08 BP 118/76 11/03/21 15:08 Pulse Ox 97 11/03/21 15:08 FiO2 Intake & Output 11/02/21 11/03/21 11/03/21 18:59 06:59 18:59 Weight 87.09 kg - Constitutional General appearance: Present: cooperative - EENT Eyes: Present: EOMI ENT: Present: hearing grossly normal - Neck Neck: Present: normal ROM - Respiratory Respiratory: bilateral: CTA - Cardiovascular Heart sounds: normal: S1, S2 - Integumentary Integumentary Comment(s): Biopsy site left breast clean and dry Integumentary: Present: normal turgor Assessment and Plan Assessment: Impression: Radiographic abnormality left breast status post ultrasound-guided core biopsy on 6121 Pathology results and radiographic findings reviewed with Dr. Sebastian, to be conservative with follow this with a repeat ultrasound in 3 months if the patient notes any changes prior to that time she will call us sooner Plan: Left breast ultrasound 3 months with physician exam at that time Cc: Dr. Jacobson
== END ==
LOC: WWCWWP 14:48
PROVIDERS: ATTEND Surgery
DX: R92.8 Other abnormal and inconclusive findings on diagnostic imaging of breast (principal); F32.A Depression, unspecified; F41.9 Anxiety disorder, unspecified; Z87.891 Personal history of nicotine dependence

== ENCOUNTER 2022-06-02 14:43 | Outpatient (CLI) | payer OTHER ==
[2022-06-02 15:54] VITALS: BP 119/64; PULSE 93; RESP 16; TEMP 97.2
[2022-06-02 16:17] LABS: Appearance,Urine Clear (Clear); Bacteria,Urine Rare /hpf; Bilirubin,Urine Negative (Negative); Blood,Urine Negative (Negative); Color,Urine Colorless; Glucose,Urine (UA) Negative (Negative); Ketones,Urine Negative (Negative); Leukocyte Esterase,Urine Small (Negative); Mucus,Urine Rare /hpf; Nitrite,Urine Negative (Negative); PH, Urine 6.5 (5.0-8.0); Protein,Urine Negative (Negative); RBC,Urine <1 /hpf (0-5); Specific Gravity,Urine 1.007 (1.001-1.035); Squamous Epithelial Cell,Urine 1 /hpf (0-4); Urobilinogen,Urine <2.0 mg/dL (<2.0); WBC,Urine 1 /hpf (0-5)
== END 2022-06-02 16:30 ==
LOC: FBPOP 14:43
PROVIDERS: ATTEND Obstetrics & Gynecology
DX: G40.919 Epilepsy, unspecified, intractable, without status epilepticus (principal); Z87.891 Personal history of nicotine dependence
CPT/HCPCS: 59025; 81001; G0463; 99213

== ENCOUNTER 2022-06-22 05:55 | Inpatient (IN) | payer OTHER ==
[2022-06-22] MEDS ORDERED: AMPICILLIN 2,000 MG in SODIUM CHLORIDE 0.9% 100 ML IVPB STA (06:13)
[2022-06-22] MEDS ORDERED: TERBUTALINE 1 MG/ML VIAL SQ PRN (06:13)
[2022-06-22] MEDS ORDERED: LIDOCAINE 0.5% (PF) 5 MG/ML (50 ML SDV) SQ PRN (06:13)
[2022-06-22] MEDS ORDERED: LACTATED RINGERS 1,000 ML IV SCH (06:15)
[2022-06-22] MEDS ORDERED: OXYTOCIN 30 UNITS/500 ML NS 30 UNIT in SALINE 1 500ML.BAG IV SCH ×2 (06:15→10:45)
[2022-06-22 06:38] LABS: Basophils % (A) 0 %; Eosinophils # (A) 0.1 k/uL (0-0.7); Eosinophils % (A) 1 %; HCT 35.6 % (34.0-46.0); HGB 11.8 gm/dL (11.4-16.0); Lymphocytes # (A) 1.8 k/uL (1.0-4.8); Lymphocytes % (A) 19 %; MCH 28.4 pg (25.0-35.0); MCHC 33.1 g/dL (31.0-37.0); MCV 85.8 fL (80.0-100.0); Mean Platelet Volume 8.6; Monocytes # (A) 0.4 k/uL (0-1.0); Monocytes % (A) 5 %; Neutrophils # (A) 6.6 k/uL (1.3-7.7); Neutrophils % (A) 73 %; Platelet Count 238 k/uL (150-450); Poikilocytosis Slight; RBC 4.15 m/uL (3.80-5.40); RDW 13.7 % (11.5-15.5); WBC 9.1 k/uL (3.8-10.6)
[2022-06-22] MEDS: BUTORPHANOL 1 MG/ML 1 ML VIAL IV PRN ×2 (08:35→10:13)
--- NOTE | 2022-06-22 09:56 | P.HPOB ---
History of Present Illness H&P Date: 06/22/22 Chief Complaint: Induction of labor 26-year-old presents at 39 weeks and 1 day for induction of labor. Her cervix is 2-3 cm dilated, 70% effaced, -2 station. She is christy irregularly. heart tones 135 with moderate variability and reactive. Review of Systems All systems: negative Constitutional: Denies chills, Denies fever Eyes: denies blurred vision, denies pain Ears, nose, mouth and throat: Denies headache, Denies sore throat Cardiovascular: Denies chest pain, Denies shortness of breath Respiratory: Denies cough Gastrointestinal: Denies abdominal pain, Denies diarrhea, Denies nausea, Denies vomiting Genitourinary: Denies dysuria, Denies hematuria Musculoskeletal: Denies myalgias Integumentary: Denies pruritus, Denies rash Neurological: Denies numbness, Denies weakness Psychiatric: Denies anxiety, Denies depression Endocrine: Denies fatigue, Denies weight change Past Medical History Past Medical History: No Reported History Additional Past Medical History / Comment(s): She's had 2 previous vaginal deliveries. Blood type is O-, antibodies negative, rubella immune, hepatitis B negative, HIV nonreactive, RPR nonreactive, GBS positive. History of Any Multi-Drug Resistant Organisms: None Reported Past Surgical History: No Surgical Hx Reported Past Anesthesia/Blood Transfusion Reactions: No Reported Reaction Past Psychological History: Anxiety, Depression Smoking Status: Former smoker Past Alcohol Use History: None Reported Past Drug Use History: None Reported - Past Family History Mother Family Medical History: Diabetes Mellitus, Hypertension Medications and Allergies Home Medications Medication Instructions Recorded Confirmed Type No Known Home Medications 06/02/22 06/22/22 History Allergies Allergy/AdvReac Type Severity Reaction Status Date / Time No Known Allergies Allergy Verified 06/02/22 15:17 Exam Osteopathic Statement: *. No significant issues noted on an osteopathic structural exam other than those noted in the History and Physical/Consult. Vital Signs Temp Pulse Resp BP Pulse Ox 06/22/22 06:07 96.7 F L 91 16 130/67 97 Intake and Output 06/21/22 06/22/22 06/22/22 22:59 06:59 14:59 Other: Weight 79.379 kg Heart: Regular rate and rhythm Lungs: Clear to auscultation bilaterally Abdomen: Soft, nontender Extremities: Negative Homans sign Results Result Diagrams: 06/22/22 06:20 Assessment and Plan (1) Encounter for induction of labor Current Visit: Yes Status: Acute Code(s): Z34.90 - ENCNTR FOR SUPRVSN OF N ORMAL , UNSP, UNSP TRIMESTER SNOMED Code(s): 720386174 Plan: 1. Induction of labor with amniotomy and Pitocin 2. Anticipate normal vaginal delivery
[2022-06-22] MEDS ORDERED: AMPICILLIN 1,000 MG in SODIUM CHLORIDE 0.9% 50 ML IVPB SCH (10:15)
[2022-06-22] MEDS ORDERED: diphenhydrAMINE 50 MG/ML 1 ML VIAL IVP PRN ×2 (10:38)
[2022-06-22] MEDS ORDERED: ZOLPIDEM 5 MG TAB PO PRN (10:38)
[2022-06-22] MEDS ORDERED: diphenhydrAMINE 25 MG CAP PO PRN (10:38)
[2022-06-22] MEDS ORDERED: LANOLIN CREAM 5 GM TUBE TOPICAL PRN (10:38)
[2022-06-22] MEDS ORDERED: SIMETHICONE 80 MG CHEWABLE PO PRN (10:38)
[2022-06-22] MEDS ORDERED: Rhogam IMMUNE GLOBULIN 1,500 UNIT/1 ML IM ONE (10:38)
[2022-06-22] MEDS ORDERED: BENZOCAINE/MENTHOL SPRAY 1 GM/SPRAY AEROSOL TOPICAL PRN (10:38)
[2022-06-22] MEDS ORDERED: HYDROCORTISONE 2.5% RECTAL CREAM 30 GM TUBE RECTAL PRN (10:38)
[2022-06-22] MEDS ORDERED: diphenhydrAMINE 50 MG CAP PO PRN (10:38)
[2022-06-22] MEDS: IBUPROFEN 600 MG TAB PO PRN ×2 (12:05→23:05)
--- NOTE | 2022-06-22 16:50 | P.PROBDLV ---
Vaginal Delivery Note - . Vaginal Delivery Note: 26-year-old presents at 39 weeks and 1 day for induction of labor. Her cervix is 2-3 cm dilated, 70% effaced, -2 station. She is christy irregularly. heart tones 135 with moderate variability and reactive. Pitocin augmentation was started and amniotomy performed at 7:12 AM, clear fluid noted. She got uncomfortable quickly and was completely dilated by 10:25 AM. She pushed, delivered a viable male over intact perineum at 10:28 AM. Head delivered OA, anterior shoulder delivered gentle downward guidance. A posterior shoulder and rest of body. Nose and mouth bulb suctioned, cord clamped and cut, placed mother's abdomen. Apgars 9, 9, weight 6 pounds 15.5 ounces. Placenta delivered spontaneously, intact with three-vessel cord at 10:31 AM. Vagina, cervix, perineum inspected. First-degree midline laceration repaired with 3-0 Vicryl. Estimated blood loss 100 mL. Mother and baby in stable condition.
[2022-06-22] MEDS: ACETAMINOPHEN TAB 325 MG TAB PO PRN (20:25)
[2022-06-22] MEDS: SENNOSIDES-DOCUSATE SODIUM 1 EACH TAB PO SCH (20:25)
[2022-06-22 22:46] LABS: Amphetamine Screen,Urine Not Detected (NotDetected); Cocaine Screen,Urine Not Detected (NotDetected); Opiate Screen,Urine Not Detected (NotDetected); Phencyclidine Screen,Urine Not Detected (NotDetected); Urn Cannabinoid Scrn Not Detected (NotDetected)
[2022-06-22 22:47] LABS: Barbiturate Screen,Urine Not Detected (NotDetected); Benzodiazepines Screen,Urine Not Detected (NotDetected); Methadone Screen, Urine Not Detected (NotDetected); Oxycodone Screen, Urine Not Detected (NotDetected); Tricyclic Antidepressant,Urine Not Detected (NotDetected)
[2022-06-23] MEDS: ACETAMINOPHEN TAB 325 MG TAB PO PRN (03:05)
[2022-06-23] MEDS: IBUPROFEN 600 MG TAB PO PRN ×3 (05:10→21:01)
[2022-06-23 08:20] LABS: Basophils % (A) 0 %; Eosinophils # (A) 0.1 k/uL (0-0.7); Eosinophils % (A) 1 %; HCT 36.4 % (34.0-46.0); HGB 11.4 gm/dL (11.4-16.0); Lymphocytes % (A) 19 %; MCH 27.7 pg (25.0-35.0); MCHC 31.3 g/dL (31.0-37.0); MCV 88.5 fL (80.0-100.0); Mean Platelet Volume 8.7; Monocytes # (A) 0.5 k/uL (0-1.0); Monocytes % (A) 5 %; Neutrophils # (A) 7.7 k/uL (1.3-7.7); Neutrophils % (A) 73 %; Platelet Count 232 k/uL (150-450); RBC 4.12 m/uL (3.80-5.40); WBC 10.5 k/uL (3.8-10.6)
--- NOTE | 2022-06-23 08:49 | P.DS ---
Providers Date of admission: 06/22/22 05:55 Expected date of discharge: 06/23/22 Attending physician: Kayleigh Jacobson Primary care physician: Stated None - Discharge Diagnosis(es) (1) Encounter for induction of labor Current Visit: Yes Status: Resolved (2) Normal vaginal delivery Current Visit: Yes Status: Acute Hospital Course: Patient presented for induction of labor. She underwent a normal vaginal delivery. course was uncomplicated. She denies nausea, vomiting, chest pain, shortness of breath or calf pain. Patient will be discharged home day #1 in stable condition to follow-up with me in 6 weeks. Plan - Discharge Summary New Discharge Prescriptions: New Ibuprofen [Motrin] 600 mg PO Q6HR PRN #30 tab PRN Reason: Mild Pain (Scale 1 To 3) Discharge Medication List Ibuprofen [Motrin] 600 mg PO Q6HR PRN #30 tab 06/23/22 [Rx] Follow up Appointment(s)/Referral(s): Kayleigh Jacobson DO [Doctor of Osteopathic Medicine] - 08/08/22 11:15 am Discharge Disposition: HOME SELF-CARE
[2022-06-23] MEDS: SENNOSIDES-DOCUSATE SODIUM 1 EACH TAB PO SCH ×2 (09:44→21:01)
[2022-06-24] MEDS: IBUPROFEN 600 MG TAB PO PRN (05:22)
--- NOTE | 2022-06-24 07:31 | P.PNOBGVD ---
Subjective - Subjective Patient reports: Reports appetite normal, Reports voiding normally, Reports pain well controlled, Reports ambulating normally : doing well Objective - Latest Vital Signs Latest vital signs: Vital Signs Temp Pulse Resp BP Pulse Ox 06/24/22 00:00 98.0 F 71 18 124/77 99 06/23/22 20:04 98.4 F 82 17 117/72 06/23/22 15:16 98.6 F 73 16 110/74 06/23/22 09:55 98.4 F 80 16 115/75 - Exam Lungs: bilateral: normal Chest: Normal S1, Normal S2 Extremities: Present: normal Abdomen: Present: normal appearance, soft Uterus: Present: normal, firm Assessment and Plan Assessment: day #2. Patient did want to go home yesterday however her son had some bleeding issues with the circumcision therefore she was asked to stay another day for observation. Both she and her son are doing well and wishes to go home today. Plan is to continue routine care discharge home later today. (1) Normal vaginal delivery Current Visit: Yes Status: Acute Code(s): O80 - ENCOUNTER FOR FULL-TERM UNCOMPLICATED DELIVERY SNOMED Code(s): 17366254
[2022-06-24 08:56] VITALS: RESP 16
[2022-06-24] MEDS: SENNOSIDES-DOCUSATE SODIUM 1 EACH TAB PO SCH (09:02)
[2022-06-24] MEDS: ACETAMINOPHEN TAB 325 MG TAB PO PRN (09:02)
[2022-06-24 11:57] VITALS: BP 117/75; PULSE 79; TEMP 98.6
== END 2022-06-24 12:37 | disposition home or self-care (01) | DRG 807 ==
LOC: 4FBP 05:55
PROVIDERS: ADMIT Obstetrics & Gynecology; ATTEND Obstetrics & Gynecology
PROC: 10E0XZZ Delivery of Products of Conception, External Approach (ICD-10-PCS; principal; 2022-06-22)
PROC: 0HQ9XZZ Repair Perineum Skin, External Approach (ICD-10-PCS; 2022-06-22)
PROC: 10907ZC Drainage of Amniotic Fluid, Therapeutic from Products of Conception, Via Natural or Artificial Opening (ICD-10-PCS; 2022-06-22)
PROC: 4A0HXCZ Measurement of Products of Conception, Cardiac Rate, External Approach (ICD-10-PCS; 2022-06-22)
PROC: 3E033VJ Introduction of Other Hormone into Peripheral Vein, Percutaneous Approach (ICD-10-PCS; 2022-06-22)
DX: O99.824 Streptococcus B carrier state complicating childbirth (principal); Z37.0 Single live birth; F32.A Depression, unspecified; O70.0 First degree perineal laceration during delivery; F41.9 Anxiety disorder, unspecified; O99.344 Other mental disorders complicating childbirth; Z3A.39 39 weeks gestation of pregnancy; Z87.891 Personal history of nicotine dependence
CPT/HCPCS: 80306; 85025; 86850; 86900; 86901

== ENCOUNTER → 2023-01-03 | Outpatient (CLI) | payer OTHER ==
--- NOTE | 2023-01-03 17:54 | US ---
EXAMINATION TYPE: Transabdominal DATE OF EXAM: 01/03/2023 2:46 PM COMPARISON: NONE CLINICAL INDICATION: Female, 27 years old with history of Z36.89 ENCOUNTER FOR OTHER SPECIFIED ANTENA SARAH SCREENING; dating EXAM PERFORMED: Transabdominal (TA) EXAM MEASUREMENTS: GESTATIONAL AGE / DATING Physician Established: (11 weeks/1 days) EDC: 07/24/23 Dates by Current Scan for: (11 weeks/2 days) EDC: 07/23/23 MATERNAL ANATOMY Uterus: 11.8 x 7.7 x 10.8cm Right Ovary: 4.2 x 2.3 x 2.5cm Left Ovary: 2.8 x 1.7 x 2.2cm Post CDS / Adnexa: wnl Presence of free fluid: no Presence of corpus luteal cyst: no Presence of subchorionic bleed: no GESTATION / SURVEY CRL: 4.4cm (11 weeks/2 days) MSD: wnl Heart Rate: 163 bpm Rhythm: Normal IUP: Viable IUP Single live intrauterine gestation. Anterior uterine placenta. IMPRESSION: Single live intrauterine gestation with estimated gestational age of 11 weeks 2 days and estimated du e date of 07/23/2023.
== END | disposition home or self-care (01) ==
LOC: RADUSWWP 14:25
PROVIDERS: ATTEND Obstetrics & Gynecology
DX: Z36.89 Encounter for other specified antenatal screening (principal); Z3A.11 11 weeks gestation of pregnancy
CPT/HCPCS: 76801

== ENCOUNTER 2023-07-06 20:30 | Outpatient (CLI) | payer OTHER ==
[2023-07-06 22:33] VITALS: BP 129/74; PULSE 99; RESP 16; TEMP 97.3
--- NOTE | 2023-07-07 07:07 | P.MSEPDOC ---
Presenting Problems - Arrival Data Date of Arrival on Unit: 07/06/23 Time of Arrival on Unit: 20:30 Mode of Transport: Wheelchair - Complaint OB-Reason for Admission/Chief Complaint: Possible Onset of Labor Comment: Pt presents to triage with c/o contx and vaginal pressure that started around 1700. Pt rates pain a 7 out of 10 Medical History - Information : 4 Para: 3 Term: 3 : 0 Abortions: Spontaneous or Elective: 0 Number of Living Children: 3 - Gestational Age Gestational Age by PIETRO (wks/days): 37 Weeks and 3 Days - History Complications: GBS+ Review of Systems - Review of Systems Constitutional: No problems Breast: No problems ENT: No problems Cardiovascular: No problems Respiratory: No problems Gastrointestinal: No problems Genitourinary: No problems Musculoskeletal: No problems Neurological: No problems Skin: No problems Vital Signs - Temperature Temperature: 97.3 F Temperature Source: Temporal Artery Scan - Pulse Pulse Oximetery Pulse Rate: 99 Pulse Assessment Method: Pulse Oximetry - Respirations Respiratory Rate: 16 Oxygen Delivery Method: Room Air O2 Sat by Pulse Oximetry: 100 - Blood Pressure Right Arm Blood Pressure: 129/74 Blood Pressure Mean: 92 Blood Pressure Source: Automatic Cuff Medical Screen Scoring - Cervical Exam Dilation (cm): 3 Effacement (%): 50 Station: -2 Membranes: Intact - Uterine Contractions Intensity: Mild Resting: Soft to palpation - Assessment - Baby A Baseline FHR: 130 Heart Rate - NICHD Category: Category I (Normal) NST: Reactive Physician Notification - Physician Notified Physician Notified Date: 07/06/23 Physician Notified Time: 21:54 Physician: Gabriel García New Order Received: Yes - Notification Comment Comment: Dr. García called, reported on pt status, GA, G/P, VS, Contractions, CAT 1 FHT, Reactive NST, cervical exam. Orders to discharge home. Maternal Triage Index - Maternal Triage Index Presenting for scheduled procedure w/no complaint: No - Stat/Priority 1 Stat Priority 1: No - Urgent/Priority 2 Urgent Priority 2: No - Prompt/Priority 3 Prompt Priority 3: No - Non-Urgent/Priority 4 Non-Urgent Priority 4: Yes Criteria Met for Priority 4: Pt presents to triage with c/o contx and vaginal pressure that started around 1700. Pt rates pain a 7 out of 10 Disposition - Disposition OB Disposition: Discharge to home Discharge Date: 07/06/23 Discharge Time: 22:00 I agree with the RN Medical Screening Exam: Yes Case reviewed; plan agreed upon as documented in EMR&OBIX.: Yes Diagnosis: FALSE LABOR AT OR AFTER 37 COMPLETED WEEKS OF GESTATION
== END 2023-07-06 22:00 | disposition home or self-care (01) ==
LOC: FBPOP 20:30
PROVIDERS: ATTEND Obstetrics & Gynecology
DX: O47.1 False labor at or after 37 completed weeks of gestation (principal); O99.820 Streptococcus B carrier state complicating pregnancy; O26.893 Other specified pregnancy related conditions, third trimester; N89.8 Other specified noninflammatory disorders of vagina; Z3A.37 37 weeks gestation of pregnancy; Z87.891 Personal history of nicotine dependence
CPT/HCPCS: 59025; G0463; 99213

== ENCOUNTER 2023-07-17 06:01 | Inpatient (IN) | payer OTHER ==
[2023-07-17] MEDS ORDERED: TERBUTALINE 1 MG/ML VIAL SQ PRN (06:13)
[2023-07-17] MEDS ORDERED: CARBOPROST TROMETHAMINE 250 MCG/ML 1 ML AMP IM PRN (06:13)
[2023-07-17] MEDS ORDERED: METHYLERGONOVINE 0.2 MG/ML 1 ML AMP IM PRN (06:13)
[2023-07-17] MEDS ORDERED: miSOPROStoL 200 MCG TAB PO PRN (06:13)
[2023-07-17] MEDS ORDERED: TRANEXAMIC 1,000 MG/100ML-NACL 1,000 MG in EMPTY BAG 1 BAG IV PRN (06:13)
[2023-07-17] MEDS ORDERED: OXYTOCIN 10 UNIT/ML 1 ML VIAL IM PRN (06:13)
[2023-07-17] MEDS ORDERED: LIDOCAINE 0.5% (PF) 5 MG/ML (50 ML SDV) SQ PRN (06:13)
[2023-07-17] MEDS: OXYTOCIN 30 UNITS/500 ML NS 30 UNIT in SALINE 1 500ML.BAG IV SCH (06:35)
[2023-07-17] MEDS: AMPICILLIN 2,000 MG in SODIUM CHLORIDE 0.9% 100 ML IVPB STA (06:35)
[2023-07-17] MEDS: LACTATED RINGERS 1,000 ML IV SCH (06:36)
[2023-07-17 06:41] LABS: Basophils % (A) 0 %; Eosinophils # (A) 0.1 k/uL (0-0.7); Eosinophils % (A) 1 %; HCT 37.4 % (34.0-46.0); Lymphocytes # (A) 1.7 k/uL (1.0-4.8); Lymphocytes % (A) 15 %; MCH 28.3 pg (25.0-35.0); MCHC 32.1 g/dL (31.0-37.0); MCV 88.3 fL (80.0-100.0); Mean Platelet Volume 8.6; Monocytes # (A) 0.5 k/uL (0-1.0); Monocytes % (A) 5 %; Neutrophils # (A) 8.4 k/uL (1.3-7.7); Neutrophils % (A) 78 %; Platelet Count 258 k/uL (150-450); RBC 4.24 m/uL (3.80-5.40); RDW 13.9 % (11.5-15.5); WBC 10.7 k/uL (3.8-10.6)
--- NOTE | 2023-07-17 07:48 | P.HPOB ---
History of Present Illness H&P Date: 07/17/23 Chief Complaint: induction of labor 27 year old presents for induction of labor. Her cervix is 2 cm dilated, 70% effaced, -3 station. She is christy irregularly. heart tones 135 with moderate variability Review of Systems All systems: negative Constitutional: Denies chills, Denies fever Eyes: denies blurred vision, denies pain Ears, nose, mouth and throat: Denies headache, Denies sore throat Cardiovascular: Denies chest pain, Denies shortness of breath Respiratory: Denies cough Gastrointestinal: Denies abdominal pain, Denies diarrhea, Denies nausea, Denies vomiting Genitourinary: Denies dysuria, Denies hematuria Musculoskeletal: Denies myalgias Integumentary: Denies pruritus, Denies rash Neurological: Denies numbness, Denies weakness Psychiatric: Denies anxiety, Denies depression Endocrine: Denies fatigue, Denies weight change Past Medical History Past Medical History: No Reported History Additional Past Medical History / Comment(s): She's had 3 previous vaginal deliveries. Blood type is O-, antibodies negative, rubella immune, hepatitis B negative, HIV nonreactive, RPR nonreactive History of Any Multi-Drug Resistant Organisms: None Reported Past Surgical History: No Surgical Hx Reported Past Anesthesia/Blood Transfusion Reactions: No Reported Reaction Past Psychological History: Anxiety, Depression Smoking Status: Former smoker Past Alcohol Use History: None Reported Past Drug Use History: None Reported - Past Family History Mother Family Medical History: Diabetes Mellitus, Hypertension Medications and Allergies Home Medications Medication Instructions Recorded Confirmed Type No Known Home Medications 07/06/23 07/17/23 History Allergies Allergy/AdvReac Type Severity Reaction Status Date / Time No Known Allergies Allergy Verified 07/17/23 06:12 Exam Osteopathic Statement: *. No significant issues noted on an osteopathic structural exam other than those noted in the History and Physical/Consult. Vital Signs Temp Pulse Resp BP Pulse Ox 07/17/23 06:12 96.9 F L 91 16 126/79 100 Intake and Output 07/16/23 07/17/23 07/17/23 22:59 06:59 14:59 Other: Weight 79.379 kg Heart: Regular rate and rhythm Lungs: Clear to auscultation bilaterally Abdomen: Soft, nontender Extremities: Negative Homans sign Results Result Diagrams: 07/17/23 06:20 Abnormal Lab Results - Last 24 Hours (Table) 07/17/23 Range/Units 06:20 WBC 10.7 H (3.8-10.6) k/uL Neutrophils # 8.4 H (1.3-7.7) k/uL Assessment and Plan (1) Encounter for induction of labor Current Visit: No Status: Acute Code(s): Z34.90 - ENCNTR FOR SUPRVSN OF NORMAL , UNSP, UNSP TRIMESTER SNOMED Code(s): 825735782 (2) 39 weeks gestation of Current Visit: Yes Status: Acute Code(s): Z3A.39 - 39 WEEKS GESTATION OF SNOMED Code(s): 89760862 Plan: 1. Induction of labor with amniotomy and Pitocin 2. Anticipate normal vaginal delivery
[2023-07-17] MEDS ORDERED: fentaNYL (PF) 50 MCG/ML 5 ML AMP ONE (10:02)
[2023-07-17] MEDS ORDERED: SODIUM CHLORIDE 0.9% 250 ML BAG ONE (10:02)
[2023-07-17] MEDS ORDERED: ROPIVACAINE 5 MG/ML 30 ML VIAL ONE (10:02)
[2023-07-17] MEDS: AMPICILLIN 1,000 MG in SODIUM CHLORIDE 0.9% 50 ML IVPB SCH (10:31)
[2023-07-17] MEDS ORDERED: BENZOCAINE/MENTHOL SPRAY 1 GM/SPRAY AEROSOL TOPICAL PRN (12:51)
[2023-07-17] MEDS ORDERED: LANOLIN CREAM 1 GM TUBE TOPICAL PRN (12:51)
[2023-07-17] MEDS ORDERED: diphenhydrAMINE 50 MG CAP PO PRN (12:51)
[2023-07-17] MEDS ORDERED: HYDROCORTISONE 2.5% RECTAL CREAM 30 GM TUBE RECTAL PRN (12:51)
[2023-07-17] MEDS ORDERED: ZOLPIDEM 5 MG TAB PO PRN (12:51)
[2023-07-17] MEDS ORDERED: diphenhydrAMINE 25 MG CAP PO PRN (12:51)
[2023-07-17] MEDS ORDERED: diphenhydrAMINE 50 MG/ML 1 ML VIAL IVP PRN ×2 (12:51)
[2023-07-17] MEDS ORDERED: SIMETHICONE 80 MG CHEWABLE PO PRN (12:51)
[2023-07-17] MEDS ORDERED: OXYTOCIN 30 UNITS/500 ML NS 30 UNIT in SALINE 1 500ML.BAG IV SCH (13:00)
[2023-07-17] MEDS: IBUPROFEN 600 MG TAB PO PRN (15:55)
[2023-07-17] MEDS: SENNOSIDES-DOCUSATE SODIUM 1 EACH TAB PO SCH (20:30)
[2023-07-17] MEDS: Rhogam IMMUNE GLOBULIN 1,500 UNIT/1 ML IM ONE (22:40)
--- NOTE | 2023-07-18 07:50 | P.PROBDLV ---
Vaginal Delivery Note - . Vaginal Delivery Note: 27 year old presents for induction of labor. Her cervix is 2 cm dilated, 70% effaced, -3 station. She is christy irregularly. heart tones 135 with moderate variability. Amniotomy performed at 7:53 AM and clear fluid noted. When the patient was about 4 cm dilated she wanted an epidural and did get 1. She was quickly complete pushed, delivered a viable female infant over intact perineum under epidural anesthesia. Head delivered OA, anterior shoulder delivered gentle downward guidance followed by posterior shoulder and rest of body. Nose and mouth bulb suctioned, cord clamped and cut, infant placed mother's abdomen. Apgars 9, 9, weight 6 lbs. 1 oz. Vagina, cervix, perineum inspected. No lacerations noted. Estimated blood loss 200 mL. Mother and baby in stable condition.
[2023-07-18] MEDS: ACETAMINOPHEN TAB 325 MG TAB PO PRN (08:01)
[2023-07-18 08:03] LABS: Basophils % (A) 0 %; Eosinophils # (A) 0.1 k/uL (0-0.7); Eosinophils % (A) 1 %; HCT 36.3 % (34.0-46.0); HGB 11.7 gm/dL (11.4-16.0); Hypochromasia Slight; Lymphocytes # (A) 1.9 k/uL (1.0-4.8); Lymphocytes % (A) 16 %; MCH 28.7 pg (25.0-35.0); MCHC 32.1 g/dL (31.0-37.0); MCV 89.6 fL (80.0-100.0); Mean Platelet Volume 8.8; Monocytes # (A) 0.5 k/uL (0-1.0); Monocytes % (A) 4 %; Neutrophils # (A) 9.6 k/uL (1.3-7.7); Neutrophils % (A) 78 %; Platelet Count 246 k/uL (150-450); RBC 4.05 m/uL (3.80-5.40); RDW 13.8 % (11.5-15.5); WBC 12.3 k/uL (3.8-10.6)
--- NOTE | 2023-07-18 08:05 | P.DS ---
Providers Date of admission: 07/17/23 06:01 Expected date of discharge: 07/18/23 Attending physician: Kayleigh Jacobson Primary care physician: Stated None - Discharge Diagnosis(es) (1) Encounter for induction of labor Current Visit: No Status: Resolved (2) 39 weeks gestation of Current Visit: Yes Status: Resolved (3) Normal vaginal delivery Current Visit: No Status: Acute Hospital Course: Patient presented for induction of labor. She underwent a normal vaginal delivery. course has been uneventful. She denies nausea, vomiting, chest pain, shortness of breath or calf pain. Patient will be discharged home day #1 in stable condition to follow-up with me in 6 weeks. Plan - Discharge Summary New Discharge Prescriptions: New Ibuprofen [Motrin] 600 mg PO Q6HR PRN #30 tab PRN Reason: Mild Pain (Scale 1 To 3) Discharge Medication List Ibuprofen [Motrin] 600 mg PO Q6HR PRN #30 tab 07/18/23 [Rx] Follow up Appointment(s)/Referral(s): Kayleigh Jacobson DO [Doctor of Osteopathic Medicine] - 6 Weeks Discharge Disposition: HOME SELF-CARE
[2023-07-18 08:20] VITALS: BP 124/68; PULSE 73; RESP 16; TEMP 97.7
== END 2023-07-18 13:30 | disposition home or self-care (01) | DRG 560 ==
LOC: 4FBP 06:01
PROVIDERS: ADMIT Obstetrics & Gynecology; ATTEND Obstetrics & Gynecology
PROC: 10E0XZZ Delivery of Products of Conception, External Approach (ICD-10-PCS; principal; 2023-07-17)
PROC: 10907ZC Drainage of Amniotic Fluid, Therapeutic from Products of Conception, Via Natural or Artificial Opening (ICD-10-PCS; principal; 2023-07-17)
PROC: 3E033VJ Introduction of Other Hormone into Peripheral Vein, Percutaneous Approach (ICD-10-PCS; principal; 2023-07-17)
DX: O99.344 Other mental disorders complicating childbirth (principal); F41.9 Anxiety disorder, unspecified; F32.A Depression, unspecified; Z3A.39 39 weeks gestation of pregnancy; Z37.0 Single live birth; Z87.891 Personal history of nicotine dependence
CPT/HCPCS: 85025; 85461; 86850; 86870; 86880; 86900; 86901

== ENCOUNTER → 2023-10-08 | Outpatient (CLI) | payer OTHER ==
[2023-10-08 15:59] LABS: Basophils % (A) 0 %; Eosinophils % (A) 0 %; HCT 46.5 % (34.0-46.0); HGB 14.7 gm/dL (11.4-16.0); Lymphocytes # (A) 2.2 k/uL (1.0-4.8); Lymphocytes % (A) 19 %; MCH 28.3 pg (25.0-35.0); MCHC 31.6 g/dL (31.0-37.0); MCV 89.7 fL (80.0-100.0); Mean Platelet Volume 8.1; Monocytes # (A) 0.5 k/uL (0-1.0); Monocytes % (A) 5 %; Neutrophils # (A) 8.9 k/uL (1.3-7.7); Neutrophils % (A) 75 %; Platelet Count 319 k/uL (150-450); RBC 5.19 m/uL (3.80-5.40); RDW 14.6 % (11.5-15.5); WBC 11.8 k/uL (3.8-10.6)
== END | disposition home or self-care (01) ==
LOC: LABPAT 14:54
PROVIDERS: ATTEND Obstetrics & Gynecology
DX: Z01.812 Encounter for preprocedural laboratory examination (principal)
CPT/HCPCS: 85025

== ENCOUNTER 2023-10-15 07:49 | Day surgery (SDC) | payer OTHER ==
--- NOTE | 2023-10-15 05:59 | P.HPOB ---
History of Present Illness H&P Date: 10/15/23 Chief Complaint: family planning 28 year old presents for laparoscopic tubal ligation. Review of Systems All systems: negative Constitutional: Denies chills, Denies fever Eyes: denies blurred vision, denies pain Ears, nose, mouth and throat: Denies headache, Denies sore throat Cardiovascular: Denies chest pain, Denies shortness of breath Respiratory: Denies cough Gastrointestinal: Denies abdominal pain, Denies diarrhea, Denies nausea, Denies vomiting Genitourinary: Denies dysuria, Denies hematuria Musculoskeletal: Denies myalgias Integumentary: Denies pruritus, Denies rash Neurological: Denies numbness, Denies weakness Psychiatric: Denies anxiety, Denies depression Endocrine: Denies fatigue, Denies weight change Past Medical History Past Medical History: No Reported History Additional Past Medical History / Comment(s): Cardiac murmur, sinus issues/aller gies History of Any Multi-Drug Resistant Organisms: None Reported Past Surgical History: No Surgical Hx Reported Past Anesthesia/Blood Transfusion Reactions: Unable to Obtain Additional Past Anesthesia/Blood Transfusion Reaction / Comment(s): Never has had anesthesia Smoking Status: Vaper - Past Family History Mother Family Medical History: Coronary Artery Disease (CAD), Diabetes Mellitus, Hypertension Medications and Allergies Home Medications Medication Instructions Recorded Confirmed Type Ibuprofen [Motrin] 600 mg PO Q6HR PRN #30 tab 07/18/23 10/10/23 Rx Loratadine [Claritin] 10 mg PO QAM 10/10/23 10/10/23 History Sertraline [Zoloft] 50 mg PO QAM 10/10/23 10/10/23 History Allergies Allergy/AdvReac Type Severity Reaction Status Date / Time No Known Allergies Allergy Verified 10/10/23 08:31 Exam Osteopathic Statement: *. No significant issues noted on an osteopathic struc tural exam other than those noted in the History and Physical/Consult. Heart: RRR Lungs: CTAB Abdomen: soft, nontender Extremeties: neg cassius's Assessment and Plan (1) Family planning Status: Acute Code(s): Z30.09 - ENCOUNTER FOR OTH GENERAL CNSL AND ADVICE ON CONTRACEPTION SNOMED Code(s): 483444383 Plan: 1. laparoscopic tubal ligation
[~2023-10-15 07:49] MED LIST changes: +DEXAMETHASONE SOD PHOSPHATE 4 MG/ML 1 ML VIAL IV ONE; +Pre Op ABX Message 1 EACH MISC MISCELLANE ONE; +SCOPOLAMINE 1 MG/72 HR PATCH TRANSDERM ONE; -cefTRIAXone 250 MG VIAL IM NR
[2023-10-15] MEDS: LACTATED RINGERS 1,000 ML IV SCH (08:21)
[2023-10-15] MEDS: DEXAMETHASONE SOD PHOSPHATE 4 MG/ML 1 ML VIAL IVP ONE (08:42)
[2023-10-15] MEDS: ONDANSETRON 4 MG/2 ML VIAL IVP ONE ×2 (08:42→10:26)
[2023-10-15] MEDS: MIDAZOLAM 2 MG/2 ML VIAL IV PRN (08:45)
[2023-10-15] MEDS: MIDAZOLAM 2 MG/2 ML VIAL IVP ONE (08:52)
[2023-10-15] MEDS ORDERED: GLYCOPYRROLATE 0.2 MG/ML 2 ML VIAL ONE (09:21)
[2023-10-15] MEDS ORDERED: LIDOCAINE 1% INJ 10MG/ML (20 ML MDV) ONE (09:21)
[2023-10-15] MEDS ORDERED: NEOSTIGMINE 1 MG/ML 10 ML VIAL ONE (09:21)
[2023-10-15] MEDS ORDERED: KETOROLAC 15 MG/ML 1 ML VIAL ONE (09:21)
[2023-10-15] MEDS ORDERED: SUCCINYLCHOLINE CHLORIDE 200 MG/10 ML VIAL IV ONE (09:21)
[2023-10-15] MEDS ORDERED: ROCURONIUM 10 MG/ML (5 ML VIAL) IV ONE (09:21)
[2023-10-15] MEDS ORDERED: PROPOFOL 10 MG/ML 20 ML VIAL IV ONE (09:21)
[2023-10-15] MEDS ORDERED: fentaNYL (PF) 50 MCG/ML 2 ML AMP ONE (09:21)
[2023-10-15] MEDS: BUPIVACAINE (PF) 0.25% 30 ML VIAL SQ ONE ×2 (09:47)
[2023-10-15] MEDS: HYDROmorphone 0.5 MG/0.5 ML SYRINGE IVP PRN (10:24)
--- NOTE | 2023-10-15 10:28 | P.OP ---
Date of Procedure: 10/15/23 Preoperative Diagnosis: 1. family planning Postoperative Diagnosis: 1. family planning Procedure(s) Performed: laparoscopic tubal ligation Anesthesia: KORY Surgeon: Kayleigh Jacobson Estimated Blood Loss (ml): 3 Urine output (ml): 50 Pathology: none sent Condition: stable Disposition: PACU Operative Findings: normal uterus, tubes and ovaries Description of Procedure: Patient was taken to the operating room where general anesthesia was obtained without difficulty. She was prepped and draped in normal sterile fashion in the dorsal lithotomy position, legs placed in the Wilfred stirrups. Bladder drained of all urine. [place] speculum placed in the vagina and the anterior lip the cervix was grasped with single-tooth tenaculum. The uterus is sounded to 9 cm and the kroner manipulator was placed. Attention was then turned to the abdomen and gloves were changed. A 10 mm infraumbilical incision was made the scalpel and 10 mm optical trocar was placed under direct visualization. A 5 mm suprapubic Incision was made and a 5 mm optical trocar was placed under direct visualization. Survey of the pelvis revealed normal uterus tubes and ovaries. The left fallopian tube was grasped with a Kleppinger and fulgurated 2-3 cm on this side in the ampullar portion. The right fallopian tube was grasped with a Kleppinger and fulgurated 2-3 cm in the ampullar portion. All instruments were then removed from the abdomen and vagina. The 10 mm infraumbilical incision was closed with 0 Vicryl and the fascial layer and then 4-0 Vicryl in a subcuticular fashion. The 5 mm incision was closed with 4-0 Vicryl in a subcuticular fashion. Patient tolerated procedure well, sponge and instrument counts correct 2 and she was taken to recovery room in stable condition.
[2023-10-15 11:18] VITALS: TEMP 97
[2023-10-15 11:19] VITALS: RESP 18
[2023-10-15 12:21] VITALS: BP 125/73; PULSE 73
== END 2023-10-15 11:49 | disposition home or self-care (01) ==
LOC: OR 07:49
PROVIDERS: ATTEND Obstetrics & Gynecology
DX: Z30.2 Encounter for sterilization (principal); F32.A Depression, unspecified; F41.9 Anxiety disorder, unspecified; F17.290 Nicotine dependence, other tobacco product, uncomplicated; Z79.899 Other long term (current) drug therapy
CPT/HCPCS: 81025; 58670; J2250; J0330; J1100; J2710; J2405; J2001; J3010; J1885; J2704; J1170; J0665